=== PATIENT | female | born 1935 | race Caucasian/White ===

== ENCOUNTER 2018-10-23 17:10 | Observation (INO) ==
[2018-10-23] MEDS ORDERED: *HR* Heparin 5,000 UNIT/ML VIAL IVP PRN ×2 (20:39)
[2018-10-23] MEDS ORDERED: *HR* Heparin 5,000 UNIT/ML VIAL IVP ONE (20:39)
[2018-10-23 21:21] LABS: Hematocrit 34.8 % (35.3-44.9); Hemoglobin 11.3 g/dL (11.5-15.4); Mean Corpuscular HGB Conc 32.5 g/dL (31.6-35.5); Mean Corpuscular Volume 86.4 fL (83.0-100.0); Mean Platelet Volume 10.2 fL (9.4-12.4); Platelet Count 236 K/mcL (140-400); Red Blood Count 4.03 M/mcL (3.82-4.97); Red Cell Distribution Width 15.4 % (11.5-14.5)
[2018-10-23 21:30] LABS: Heparin anti-factor XA UFH 0.03 IU/mL (0.30-0.70); Prothrombin Time 11.2 Seconds (9.4-12.1)
[2018-10-23 21:42] LABS: Calcium 9.2 mg/dL (8.6-10.3); Potassium 4.5 mEq/L (3.5-5.1)
[2018-10-23] MEDS: Heparin 25,000 UNIT/250 ML D5W 25,000 UNIT/250 ML IV.SOLN IVC SCH (21:47)
[2018-10-23] MEDS ORDERED: Morphine Sulfate Immed Rel 15 MG TABLET PO STA (22:42)
[2018-10-24] MEDS ORDERED: Acetaminophen 325 MG TABLET PO PRN (02:48)
[2018-10-24] MEDS ORDERED: Ondansetron 4 MG/2 ML VIAL IVP PRN (02:48)
[2018-10-24] MEDS ORDERED: Naloxone 0.4 MG/ML INJ IVP PRN (02:48)
[2018-10-24 04:35] LABS: Basophils % 0.4 %; Eosinophils # 0.3 K/mcL (0.0-0.6); Eosinophils % 3.4 %; Hemoglobin 10.8 g/dL (11.5-15.4); Immature Granulocytes % 0.5 % (0-4); Lymphocytes # 2.1 K/mcL (0.6-4.6); Lymphocytes % 28.3 %; Mean Corpuscular HGB Conc 31.8 g/dL (31.6-35.5); Mean Corpuscular Hemoglobin 27.5 pg (28.0-33.3); Mean Corpuscular Volume 86.5 fL (83.0-100.0); Mean Platelet Volume 9.8 fL (9.4-12.4); Monocytes # 0.5 K/mcL (0.0-1.3); Monocytes % 6.7 %; Neutrophils # 4.5 K/mcL (1.6-8.9); Platelet Count 233 K/mcL (140-400); Red Blood Count 3.93 M/mcL (3.82-4.97); Red Cell Distribution Width 15.3 % (11.5-14.5); Segmented Neutrophils % 60.7 %; White Blood Count 7.4 K/mcL (4.3-11.1)
[2018-10-24 04:54] LABS: Albumin 3.5 g/dL (3.5-5.7); Albumin/Globulin Ratio 1.3 (1.1-2.2); Bilirubin,Total 0.6 mg/dL (0.3-1.0); Calcium 8.8 mg/dL (8.6-10.3); Globulin 2.6 g/dL (2.4-3.5); Magnesium 1.8 mg/dL (1.6-2.6); Total Protein 6.1 g/dL (6.4-8.9)
[2018-10-24] MEDS: Levothyroxine 25 MCG TABLET PO SCH (07:01)
[2018-10-24] MEDS: Lisinopril-HCTZ 20-12.5mg TABLET PO SCH (08:02)
[2018-10-24] MEDS ORDERED: Apixaban 5 MG TABLET PO SCH (12:30)
[2018-10-24] MEDS ORDERED: Perflutren Lipid Microsphere 1.3 ML in 0.9 % Sodium Chloride 8.7 ML IVP ONE (15:23)
[2018-10-25 00:16] LABS: Bilirubin,Urine Negative (Negative); Blood,Urine Negative (Negative); Clarity,Urine Cloudy (Clear); Color,Urine Yellow (Yellow); Glucose,Urine (UA) Normal (Normal); Ketones,Urine Negative (Negative); Leukocyte Esterase,Urine Large (Negative); Nitrite,Urine Positive (Negative); Protein,Urine Negative (Neg-Trace); Specific Gravity,Urine 1.015 (1.010-1.025); Urobilinogen,Urine Normal (Normal)
[2018-10-25 00:23] LABS: Bacteria,Urine Many per hpf (None-Few); Hyaline Casts,Urine None Seen per lpf (None-Few); RBC,Urine 0-3 per hpf (0-3); Squamous Epithelial Cell,Urine Moderate per lpf (None-Few); WBC,Urine TNTC per hpf (0-3)
[2018-10-25 02:37] LABS: Hemoglobin 10.4 g/dL (11.5-15.4); Mean Corpuscular HGB Conc 32.5 g/dL (31.6-35.5); Mean Corpuscular Hemoglobin 27.3 pg (28.0-33.3); Mean Platelet Volume 9.8 fL (9.4-12.4); Platelet Count 208 K/mcL (140-400); Red Blood Count 3.81 M/mcL (3.82-4.97); Red Cell Distribution Width 15.2 % (11.5-14.5); White Blood Count 6.9 K/mcL (4.3-11.1)
[2018-10-25 03:00] LABS: Calcium 8.7 mg/dL (8.6-10.3)
[2018-10-25] MEDS: Levothyroxine 25 MCG TABLET PO SCH (07:39)
[2018-10-25] MEDS: Lisinopril-HCTZ 20-12.5mg TABLET PO SCH (08:38)
[2018-10-25] MEDS: Heparin 25,000 UNIT/250 ML D5W 25,000 UNIT/250 ML IV.SOLN IVC SCH (08:38)
[2018-10-25] MEDS ORDERED: Apixaban 5 MG TABLET PO SCH (09:00)
[2018-10-25 11:16] VITALS: BP 127/59
== END 2018-10-25 13:47 | disposition home or self-care (01) ==
LOC: EMEROOARM 17:10 → CDU 17:10
PROVIDERS: ADMIT Pediatrics; ATTEND Pediatrics

== ENCOUNTER 2020-08-21 18:46 | Inpatient (IN) ==
[2020-08-21 20:19] LABS: Calcium 8.8 mg/dL (8.6-10.3); Potassium 4.7 mEq/L (3.5-5.1)
[2020-08-21 20:57] LABS: Bacteria,Urine Few per hpf (None-Few); Bilirubin,Urine Small (Negative); Blood,Urine Moderate (Negative); Clarity,Urine Ex.Turbid (Clear); Color,Urine Yellow (Yellow); Glucose,Urine (UA) Normal (Normal); Hyaline Casts,Urine Few per lpf (None Seen); Ketones,Urine Trace mg/dL (Negative); Leukocyte Esterase,Urine Large (Negative); Mucus,Urine Few per lpf (None-Few); Nitrite,Urine Negative (Negative); PH,Urine 5.5 pH Units (5.0-8.0); Protein,Urine 100 mg/dL (Neg-Trace); RBC,Urine 15-30 per hpf (0-3); Specific Gravity,Urine 1.026 (1.010-1.025); Squamous Epithelial Cell,Urine Few per hpf (None-Few); WBC,Urine TNTC per hpf (0-3)
[2020-08-21] MEDS ORDERED: 0.9 % Sodium Chloride 1,000 ML IVC ONE (23:40)
[2020-08-21] MEDS ORDERED: cefTRIAXone 1,000 MG in Water for inj. (sterile) 10 ML IVP ONE (23:40)
[2020-08-22] MEDS ORDERED: *HR* Dextrose 50 % in Water (Vial) 50 ML VIAL ONE (02:14)
[2020-08-22] MEDS ORDERED: Naloxone 0.4 MG/ML INJ IVP PRN (02:45)
[2020-08-22] MEDS ORDERED: Melatonin 3 MG TABLET PO PRN (02:45)
[2020-08-22] MEDS ORDERED: Ondansetron 4 MG/2 ML VIAL IVP PRN (02:45)
[2020-08-22] MEDS ORDERED: *HR* Dextrose 50 % in Water (Vial) 50 ML VIAL IVP PRN (02:46)
[2020-08-22] MEDS ORDERED: Dextrose Gel 15 GM/37.5 ML TUBE PO PRN ×2 (02:46)
[2020-08-22] MEDS ORDERED: D5% in Water 1,000 ML IVC PRN (02:46)
[2020-08-22 04:58] LABS: Basophils % 0.3 %; Eosinophils # 0.1 K/mcL (0.0-0.6); Eosinophils % 1.5 %; Hemoglobin 9.5 g/dL (11.5-15.4); Immature Granulocytes % 0.5 % (0-4); Lymphocytes # 1.1 K/mcL (0.6-4.6); Lymphocytes % 16.5 %; Mean Corpuscular HGB Conc 31.7 g/dL (31.6-35.5); Mean Corpuscular Hemoglobin 30.7 pg (28.0-33.3); Mean Corpuscular Volume 97.1 fL (83.0-100.0); Mean Platelet Volume 10.4 fL (9.4-12.4); Monocytes # 0.5 K/mcL (0.0-1.3); Neutrophils # 4.9 K/mcL (1.6-8.9); Platelet Count 205 K/mcL (140-400); Red Blood Count 3.09 M/mcL (3.82-4.97); Red Cell Distribution Width 16.9 % (11.5-14.5); Segmented Neutrophils % 74.2 %; White Blood Count 6.6 K/mcL (4.3-11.1)
[2020-08-22 05:02] LABS: Albumin 3.1 g/dL (3.5-5.7); Albumin/Globulin Ratio 1.2 (1.1-2.2); Bilirubin,Total 0.4 mg/dL (0.3-1.0); Calcium 7.7 mg/dL (8.6-10.3); Globulin 2.5 g/dL (2.4-3.5); Magnesium 1.6 mg/dL (1.6-2.6); Phosphorous 4.3 mg/dL (2.7-4.5); Potassium 5.2 mEq/L (3.5-5.1); Total Protein 5.6 g/dL (6.4-8.9)
[2020-08-22] MEDS ORDERED: 0.9 % Sodium Chloride 1,000 ML IVC ONE (07:14)
[2020-08-22] MEDS: cefTRIAXone 1,000 MG in Water for inj. (sterile) 10 ML IVP SCH (07:30)
[2020-08-22] MEDS ORDERED: QUEtiapine Fumarate 25 MG TABLET PO PRN (08:17)
[2020-08-22] MEDS ORDERED: Calcium Gluconate 1gm/50mL 1 GM/50 ML BAG IVPB ONE (09:00)
[2020-08-22] MEDS: Sodium Bicarbonate 75 MEQ in 0.45 % Sodium Chloride 1,000 ML IVC SCH ×2 (09:03→22:05)
[2020-08-22] MEDS: polyethylene glycoL 3350 17 GM POWD.PACK PO SCH (10:42)
[2020-08-22] MEDS: Sennosides/Docusate Sodium TABLET PO SCH ×2 (10:42→22:01)
[2020-08-22] MEDS: Apixaban 2.5 MG TABLET PO SCH ×2 (10:52→22:04)
[2020-08-22] MEDS: Mirtazapine 15 MG TABLET PO SCH (22:01)
[2020-08-22] MEDS: D5% in Water 1,000 ML IVC SCH (22:04)
[2020-08-23 06:12] LABS: Basophils % 0.4 %; Eosinophils # 0.2 K/mcL (0.0-0.6); Eosinophils % 4.6 %; Hematocrit 27.1 % (35.3-44.9); Hemoglobin 8.7 g/dL (11.5-15.4); Immature Granulocytes % 0.2 % (0-4); Lymphocytes % 21.6 %; Mean Corpuscular HGB Conc 32.1 g/dL (31.6-35.5); Mean Corpuscular Hemoglobin 30.4 pg (28.0-33.3); Mean Corpuscular Volume 94.8 fL (83.0-100.0); Mean Platelet Volume 10.6 fL (9.4-12.4); Monocytes # 0.4 K/mcL (0.0-1.3); Monocytes % 8.6 %; Neutrophils # 2.9 K/mcL (1.6-8.9); Platelet Count 187 K/mcL (140-400); Red Blood Count 2.86 M/mcL (3.82-4.97); Red Cell Distribution Width 16.6 % (11.5-14.5); Segmented Neutrophils % 64.6 %; White Blood Count 4.5 K/mcL (4.3-11.1)
[2020-08-23 06:15] LABS: Calcium 7.2 mg/dL (8.6-10.3); Magnesium 1.3 mg/dL (1.6-2.6); Phosphorous 2.7 mg/dL (2.7-4.5); Potassium 4.1 mEq/L (3.5-5.1)
[2020-08-23] MEDS: Sodium Bicarbonate 75 MEQ in 0.45 % Sodium Chloride 1,000 ML IVC SCH ×2 (08:18→21:38)
[2020-08-23] MEDS: cefTRIAXone 1,000 MG in Water for inj. (sterile) 10 ML IVP SCH (08:19)
[2020-08-23] MEDS: Apixaban 2.5 MG TABLET PO SCH ×2 (08:19→21:39)
[2020-08-23] MEDS: Sennosides/Docusate Sodium TABLET PO SCH ×2 (08:19→21:39)
[2020-08-23] MEDS: polyethylene glycoL 3350 17 GM POWD.PACK PO SCH (08:20)
[2020-08-23 09:17] LABS: Hematocrit 29.3 % (35.3-44.9); Hemoglobin 9.7 g/dL (11.5-15.4)
[2020-08-23 09:33] LABS: % Iron Saturation 28 % (15-50); Iron 48 mcg/dL (50-170); Transferrin 123 mg/dL (203-362)
[2020-08-23 09:50] LABS: Ferritin 105 ng/mL (10-120)
[2020-08-23 09:57] LABS: Folate 1.9 ng/mL (3.0-16.0)
[2020-08-23] MEDS ORDERED: Cyanocobalamin (B-12) 1,000 MCG/ML VIAL SQ ONE (11:05)
[2020-08-23] MEDS: Folic Acid 1 MG TABLET PO SCH (12:05)
[2020-08-23] MEDS ORDERED: Calcium Gluconate 1gm/50mL 1 GM/50 ML BAG IVPB ONE (12:08)
[2020-08-23] MEDS: D5% in Water 1,000 ML IVC SCH (16:25)
[2020-08-23] MEDS: Mirtazapine 15 MG TABLET PO SCH (21:39)
[2020-08-24] MEDS: Sodium Bicarbonate 75 MEQ in 0.45 % Sodium Chloride 1,000 ML IVC SCH ×2 (03:29→15:00)
[2020-08-24 03:42] LABS: Hematocrit 26.2 % (35.3-44.9)
[2020-08-24 04:03] LABS: Calcium 7.3 mg/dL (8.6-10.3); Magnesium 1.5 mg/dL (1.6-2.6); Phosphorous 2.6 mg/dL (2.7-4.5); Potassium 3.5 mEq/L (3.5-5.1)
[2020-08-24] MEDS: Apixaban 2.5 MG TABLET PO SCH ×2 (08:38→21:06)
[2020-08-24] MEDS: Sennosides/Docusate Sodium TABLET PO SCH ×2 (08:39→21:06)
[2020-08-24] MEDS: polyethylene glycoL 3350 17 GM POWD.PACK PO SCH (08:39)
[2020-08-24] MEDS: Folic Acid 1 MG TABLET PO SCH (08:39)
[2020-08-24] MEDS ORDERED: Cyanocobalamin (B-12) 1,000 MCG/ML VIAL SQ ONE (09:00)
[2020-08-24] MEDS: cefTRIAXone 1,000 MG in Water for inj. (sterile) 10 ML IVP SCH (10:08)
[2020-08-24] MEDS: D5% in Water 1,000 ML IVC SCH (12:12)
[2020-08-24] MEDS: Mirtazapine 15 MG TABLET PO SCH (21:06)
[2020-08-25] MEDS: Sodium Bicarbonate 75 MEQ in 0.45 % Sodium Chloride 1,000 ML IVC SCH ×3 (02:10→22:16)
[2020-08-25 02:32] LABS: Albumin 2.7 g/dL (3.5-5.7); Albumin/Globulin Ratio 1.4 (1.1-2.2); Bilirubin,Total 0.4 mg/dL (0.3-1.0); Calcium 7.2 mg/dL (8.6-10.3); Globulin 1.9 g/dL (2.4-3.5); Potassium 3.4 mEq/L (3.5-5.1); Total Protein 4.6 g/dL (6.4-8.9)
[2020-08-25] MEDS: cefTRIAXone 1,000 MG in Water for inj. (sterile) 10 ML IVP SCH (10:50)
[2020-08-25] MEDS: Sennosides/Docusate Sodium TABLET PO SCH (10:50)
[2020-08-25] MEDS: polyethylene glycoL 3350 17 GM POWD.PACK PO SCH (10:50)
[2020-08-25] MEDS: Apixaban 2.5 MG TABLET PO SCH ×2 (10:51→21:08)
[2020-08-25] MEDS: Folic Acid 1 MG TABLET PO SCH (10:51)
[2020-08-25] MEDS ORDERED: Sennosides/Docusate Sodium TABLET PO PRN (12:02)
[2020-08-25] MEDS: D5% in Water 1,000 ML IVC SCH (12:34)
[2020-08-25] MEDS: Mirtazapine 15 MG TABLET PO SCH (21:09)
[2020-08-26 05:39] LABS: Albumin 2.2 g/dL (3.5-5.7); Albumin/Globulin Ratio 1.2 (1.1-2.2); Bilirubin,Total 0.3 mg/dL (0.3-1.0); Calcium 6.6 mg/dL (8.6-10.3); Globulin 1.8 g/dL (2.4-3.5)
[2020-08-26] MEDS: D5% in Water 1,000 ML IVC SCH (07:26)
[2020-08-26] MEDS: Sodium Bicarbonate 75 MEQ in 0.45 % Sodium Chloride 1,000 ML IVC SCH (08:40)
[2020-08-26] MEDS: Folic Acid 1 MG TABLET PO SCH (08:40)
[2020-08-26] MEDS: Apixaban 2.5 MG TABLET PO SCH (08:41)
[2020-08-26] MEDS: cefTRIAXone 1,000 MG in Water for inj. (sterile) 10 ML IVP SCH (10:23)
[2020-08-26 11:46] LABS: Hematocrit 25.5 % (35.3-44.9); Hemoglobin 8.1 g/dL (11.5-15.4)
[2020-08-26 15:18] VITALS: BP 124/69
== END 2020-08-26 19:19 | DRG 682 ==
LOC: EMEROOARM 18:46 → 3BNU 18:46 → SUATTDRO 08-22 00:44 → 3BNU 08-22 01:54 → SUATTDRO 08-23 12:18
PROVIDERS: ADMIT Family Medicine; ATTEND Registered Nurse

== ENCOUNTER 2021-06-26 09:11 | Inpatient (IN) ==
[2021-06-26] MEDS ORDERED: 0.9 % Sodium Chloride 1,000 ML IVC ONE (09:45)
[2021-06-26] MEDS ORDERED: cefTRIAXone 1,000 MG in 0.9 % Sodium Chloride Mini Bag 100 ML IVPB ONE (09:51)
[2021-06-26 10:32] LABS: Basophils % 0.4 %; Eosinophils # 0.2 K/mcL (0.0-0.6); Eosinophils % 2.6 %; Hematocrit 31.6 % (35.3-44.9); Hemoglobin 10.4 g/dL (11.5-15.4); Immature Granulocytes % 0.5 % (0-4); Lymphocytes # 1.3 K/mcL (0.6-4.6); Lymphocytes % 16.3 %; Mean Corpuscular HGB Conc 32.9 g/dL (31.6-35.5); Mean Corpuscular Hemoglobin 28.8 pg (28.0-33.3); Mean Corpuscular Volume 87.5 fL (83.0-100.0); Mean Platelet Volume 10.5 fL (9.4-12.4); Monocytes # 0.6 K/mcL (0.0-1.3); Monocytes % 7.1 %; Platelet Count 272 K/mcL (140-400); Red Blood Count 3.61 M/mcL (3.82-4.97); Red Cell Distribution Width 14.8 % (11.5-14.5); Segmented Neutrophils % 73.1 %; White Blood Count 8.2 K/mcL (4.3-11.1)
[2021-06-26 10:40] LABS: INR 1.9; Prothrombin Time 21.1 Seconds (9.4-12.1)
[2021-06-26 10:43] LABS: Activated Partial Thrombo Time 37.8 Seconds (26.0-36.0)
[2021-06-26 11:05] LABS: Albumin 4.1 g/dL (3.5-5.7); Albumin/Globulin Ratio 1.4 (1.1-2.2); Bilirubin,Direct 0.1 mg/dL (0.0-0.2); Bilirubin,Indirect 0.5 mg/dL (0.0-1.0); Bilirubin,Total 0.6 mg/dL (0.3-1.0); Calcium 9.1 mg/dL (8.6-10.3); Globulin 2.9 g/dL (2.4-3.5); Potassium 4.4 mEq/L (3.5-5.1); Troponin I 0.04 ng/mL (< 0.04)
[2021-06-26 12:41] LABS: Bilirubin,Urine Negative (Negative); Blood,Urine Negative (Negative); Clarity,Urine Clear (Clear); Color,Urine Light-Yellow (Yellow); Glucose,Urine (UA) Normal (Normal); Ketones,Urine Negative (Negative); Leukocyte Esterase,Urine Negative (Negative); Nitrite,Urine Negative (Negative); PH,Urine 5.5 pH Units (5.0-8.0); Protein,Urine Negative (Neg-Trace); Specific Gravity,Urine 1.016 (1.010-1.025); Urobilinogen,Urine Normal (Normal)
[2021-06-26] MEDS ORDERED: Naloxone 0.4 MG/ML INJ IVP PRN (14:13)
[2021-06-26] MEDS ORDERED: Ondansetron 4 MG/2 ML VIAL IVP PRN (14:13)
[2021-06-26] MEDS: QUEtiapine Fumarate 25 MG TABLET PO SCH (19:59)
[2021-06-27] MEDS: Mirtazapine 15 MG TABLET PO SCH (08:45)
[2021-06-27] MEDS: cefTRIAXone 1,000 MG in Water for inj. (sterile) 10 ML IVP SCH (08:46)
[2021-06-27 10:53] LABS: Basophils % 0.5 %; Eosinophils # 0.3 K/mcL (0.0-0.6); Eosinophils % 4.7 %; Hemoglobin 10.6 g/dL (11.5-15.4); Immature Granulocytes % 0.5 % (0-4); Lymphocytes # 1.4 K/mcL (0.6-4.6); Lymphocytes % 21.4 %; Mean Corpuscular HGB Conc 32.1 g/dL (31.6-35.5); Mean Corpuscular Hemoglobin 28.9 pg (28.0-33.3); Mean Corpuscular Volume 89.9 fL (83.0-100.0); Mean Platelet Volume 10.6 fL (9.4-12.4); Monocytes # 0.4 K/mcL (0.0-1.3); Monocytes % 5.7 %; Neutrophils # 4.4 K/mcL (1.6-8.9); Platelet Count 249 K/mcL (140-400); Red Blood Count 3.67 M/mcL (3.82-4.97); Segmented Neutrophils % 67.2 %; White Blood Count 6.5 K/mcL (4.3-11.1)
[2021-06-27 11:12] LABS: Calcium 8.8 mg/dL (8.6-10.3); Potassium 4.4 mEq/L (3.5-5.1)
[2021-06-27] MEDS: Apixaban 2.5 MG TABLET PO SCH ×2 (11:41→20:17)
[2021-06-27] MEDS: QUEtiapine Fumarate 25 MG TABLET PO SCH (20:17)
[2021-06-28] MEDS: Mirtazapine 15 MG TABLET PO SCH (08:16)
[2021-06-28] MEDS: Apixaban 2.5 MG TABLET PO SCH ×2 (08:16→20:45)
[2021-06-28] MEDS: cefTRIAXone 1,000 MG in Water for inj. (sterile) 10 ML IVP SCH (08:17)
[2021-06-28] MEDS ORDERED: Lisinopril-HCTZ 20-12.5mg TABLET PO SCH (09:00)
[2021-06-28] MEDS: QUEtiapine Fumarate 25 MG TABLET PO SCH (20:45)
[2021-06-29] MEDS: Apixaban 2.5 MG TABLET PO SCH ×2 (08:08→20:23)
[2021-06-29] MEDS: Mirtazapine 15 MG TABLET PO SCH (08:08)
[2021-06-29] MEDS: cefTRIAXone 1,000 MG in Water for inj. (sterile) 10 ML IVP SCH (08:09)
[2021-06-29] MEDS: Lisinopril-HCTZ 20-12.5mg TABLET PO SCH (09:18)
[2021-06-29] MEDS: QUEtiapine Fumarate 25 MG TABLET PO SCH (20:24)
[2021-06-30] MEDS: Lisinopril-HCTZ 20-12.5mg TABLET PO SCH (08:02)
[2021-06-30] MEDS: Apixaban 2.5 MG TABLET PO SCH (08:02)
[2021-06-30] MEDS: Mirtazapine 15 MG TABLET PO SCH (08:02)
[2021-06-30 15:45] VITALS: BP 122/64; PULSE 68; TEMP 97.8; O2SAT 97
== END 2021-06-30 18:15 | disposition home health service (06) | DRG 884 ==
LOC: 3BNU 09:11 → EMEROOARM 09:11 → SUATTDRO 13:52 → 3BNU 14:08
PROVIDERS: ADMIT Internal Medicine; ATTEND Internal Medicine

== ENCOUNTER 2021-11-15 20:13 | Inpatient (IN) ==
[2021-11-15] MEDS ORDERED: 0.9 % Sodium Chloride 1,000 ML IVC ONE (20:21)
[2021-11-15] MEDS ORDERED: Iopamidol - 370 500 ML MLS IVP ONE (20:22)
[2021-11-15] MEDS ORDERED: Ondansetron 4 MG/2 ML VIAL IVP STA (20:30)
[2021-11-15] MEDS ORDERED: 0.9 % Sodium Chloride 1,000 ML ONE (20:30)
[2021-11-15] MEDS ORDERED: Famotidine 20 MG/2 ML VIAL IVP ONE (20:30)
[2021-11-15 20:39] LABS: Basophils # 0.1 K/mcL (0.0-0.2); Basophils % 0.4 %; Eosinophils # 0.3 K/mcL (0.0-0.6); Eosinophils % 2.4 %; Hematocrit 41.2 % (35.3-44.9); Hemoglobin 13.1 g/dL (11.5-15.4); Immature Granulocytes % 0.7 % (0-4); Lymphocytes # 4.8 K/mcL (0.6-4.6); Lymphocytes % 39.1 %; Mean Corpuscular HGB Conc 31.8 g/dL (31.6-35.5); Mean Corpuscular Hemoglobin 28.7 pg (28.0-33.3); Mean Corpuscular Volume 90.4 fL (83.0-100.0); Monocytes # 0.4 K/mcL (0.0-1.3); Neutrophils # 6.7 K/mcL (1.6-8.9); Platelet Count 402 K/mcL (140-400); Red Blood Count 4.56 M/mcL (3.82-4.97); Red Cell Distribution Width 15.9 % (11.5-14.5); Segmented Neutrophils % 54.4 %; White Blood Count 12.3 K/mcL (4.3-11.1)
[2021-11-15 20:46] LABS: INR 1.3; Prothrombin Time 14.9 Seconds (9.4-12.1)
[2021-11-15 20:49] LABS: Activated Partial Thrombo Time 25.5 Seconds (26.0-36.0)
[2021-11-15 21:04] LABS: Albumin 4.3 g/dL (3.5-5.7); Albumin/Globulin Ratio 1.4 (1.1-2.2); Alkaline Phosphatase 69 Units/L (34-104); BUN/Creatinine Ratio 18 (6-26); Blood Urea Nitrogen 26 mg/dL (8-23); Calcium 9.5 mg/dL (8.6-10.3); Globulin 3.1 g/dL (2.4-3.5); Total Protein 7.4 g/dL (6.4-8.9); Troponin I < 0.03 ng/mL (< 0.04); eGFR For African Americans 41 (> 60); eGFR For Non-African Americans 34 (> 60)
[2021-11-15 21:05] LABS: Alanine Aminotransferase 7 Units/L (7-52); Aspartate Amino Transferase 22 Units/L (13-39); Bilirubin,Total 0.6 mg/dL (0.3-1.0); Carbon Dioxide 11 mEq/L (23-29); Chloride 108 mEq/L (98-107); Glucose 203 mg/dL (70-105); Osmolality,Calculated 293 (280-300); Potassium 3.9 mEq/L (3.5-5.1); Sodium 136 mEq/L (136-145)
[2021-11-15] MEDS ORDERED: 0.9 % Sodium Chloride 1,000 ML IV ONE (21:32)
[2021-11-15 21:48] LABS: Influenza A PCR Negative (Negative); Influenza B PCR Negative (Negative); Resp. Syncytial Virus PCR Negative (Negative); SARS-CoV-2 by PCR (In House) Negative (Negative)
[2021-11-15 23:19] LABS: Bilirubin,Urine Negative (Negative); Blood,Urine Negative (Negative); Clarity,Urine Clear (Clear); Color,Urine Light-Yellow (Yellow); Glucose,Urine (UA) Normal (Normal); Ketones,Urine Negative (Negative); Leukocyte Esterase,Urine Negative (Negative); Nitrite,Urine Negative (Negative); PH,Urine 5.5 pH Units (5.0-8.0); Protein,Urine Trace mg/dL (Neg-Trace); Specific Gravity,Urine 1.021 (1.010-1.025); Urobilinogen,Urine Normal (Normal)
[2021-11-16 00:09] LABS: Acetaminophen < 10 mcg/mL (10-20); Salicylate < 2.5 mg/dL (15.0-30.0)
[2021-11-16] MEDS ORDERED: Acetaminophen 325 MG TABLET PO PRN (00:12)
[2021-11-16] MEDS ORDERED: Melatonin 3 MG TABLET PO PRN (00:12)
[2021-11-16] MEDS ORDERED: Naloxone 0.4 MG/ML INJ IVP PRN (00:12)
[2021-11-16 00:37] LABS: ABG Base Excess -19 mEq/L (-2 to 3); ABG HCO3 9 mEq/L (21-27); ABG Oxygen Saturation 91 % (95-98); ABG PCO2 26 mmHg (35-45); ABG PH 7.14 pH Units (7.32-7.45); ABG PO2 77 mmHg (85-104); ABG TCO2 10 mEq/L (20-26)
[2021-11-16] MEDS ORDERED: *HR* Metoprolol 5 MG/5 ML VIAL IVP ONE (01:34)
[2021-11-16] MEDS: Piperacillin/Tazobactam 3.375 GM in 0.9 % Sodium Chloride Mini Bag 100 ML IVPB SCH ×2 (01:45→10:32)
[2021-11-16] MEDS: Ondansetron ODT 4 MG TAB.RAPDIS SL PRN ×2 (01:45→13:47)
[2021-11-16 02:13] LABS: Red Cell Distribution Width 15.9 % (11.5-14.5)
[2021-11-16 02:15] LABS: Hematocrit 39.2 % (35.3-44.9); Hemoglobin 11.9 g/dL (11.5-15.4); Mean Corpuscular HGB Conc 30.4 g/dL (31.6-35.5); Mean Corpuscular Hemoglobin 28.7 pg (28.0-33.3); Mean Corpuscular Volume 94.7 fL (83.0-100.0); Mean Platelet Volume 10.6 fL (9.4-12.4); Platelet Count 363 K/mcL (140-400); Red Blood Count 4.14 M/mcL (3.82-4.97); White Blood Count 27.2 K/mcL (4.3-11.1)
[2021-11-16 02:22] LABS: Monocytes # 2.2 K/mcL (0.0-1.3)
[2021-11-16] MEDS ORDERED: Sodium Bicarbonate 50 MEQ in 0.45 % Sodium Chloride 1,000 ML IVC SCH ×2 (02:30→05:31)
[2021-11-16 02:32] LABS: Magnesium 2.3 mg/dL (1.6-2.6); Phosphorous 4.6 mg/dL (2.7-4.5); Potassium 4.3 mEq/L (3.5-5.1)
[2021-11-16] MEDS ORDERED: Iopamidol - 370 500 ML MLS IVP ONE (02:39)
[2021-11-16] MEDS ORDERED: 0.9 % Sodium Chloride 1,000 ML IV ONE (02:41)
[2021-11-16 02:44] LABS: Lymphocytes # 0.5 K/mcL (0.6-4.6); Neutrophils # 24.5 K/mcL (1.6-8.9); Platelet Estimate Normal (Normal)
[2021-11-16] MEDS ORDERED: Iopamidol - 370 500 ML MLS PO ONE (03:28)
[2021-11-16] MEDS ORDERED: Sodium Bicarbonate 75 MEQ in 0.45 % Sodium Chloride 1,000 ML IVC SCH (06:00)
[2021-11-16 06:14] LABS: Calcium 7.5 mg/dL (8.6-10.3); Potassium 4.9 mEq/L (3.5-5.1)
[2021-11-16] MEDS ORDERED: 0.9 % Sodium Chloride 1,000 ML IVC ONE (06:27)
[2021-11-16 08:49] LABS: VBG HCO3 10 mEq/L (21-27); VBG PCO2 32 mmHg (41-51); VBG PH 7.09 pH Units (7.32-7.42); VBG PO2 164 mmHg (25-50)
[2021-11-16 09:54] VITALS: BP 141/52; PULSE 93; TEMP 98.7; O2SAT 100
[2021-11-16 11:03] LABS: Albumin 3.1 g/dL (3.5-5.7); Albumin/Globulin Ratio 1.6 (1.1-2.2); Bilirubin,Total 0.5 mg/dL (0.3-1.0); Calcium 7.5 mg/dL (8.6-10.3); Potassium 4.5 mEq/L (3.5-5.1); Total Protein 5.1 g/dL (6.4-8.9)
[2021-11-16] MEDS ORDERED: Piperacillin/Tazobactam 3.375 GM in 0.9 % Sodium Chloride Mini Bag 100 ML IVPB SCH (18:00)
== END 2021-11-16 14:20 | disposition hospice, home (50) | DRG 871 ==
LOC: 3NENU 20:13 → EMEROOARM 20:13 → 3NENU 11-16 00:48 → SUATTDRO 11-16 00:58
PROVIDERS: ADMIT Internal Medicine; ATTEND Internal Medicine